=== PATIENT | male | born 1975 | race Caucasian/White ===

== ENCOUNTER 2017-04-21 20:21 | Emergency (ER) | payer BC ==
[2017-04-21 20:25] VITALS: BP 152/111; PULSE 94; TEMP 98.5; BMI 33.0
--- NOTE | 2017-04-21 21:08 | PDOC ---
History of Present Illness - History of Present Illness Initial Comments: 04/21/17 21:09 The patient is a 41 year old male, with no significant past medical history, who presents to the emergency department with a progressive rash on the right side of his back for 2 days. The patient states his rash looks like shingles. He reports the first bump on Saturday looked like a mosquito bite on his back, however, reports that bump is bigger today and there is development of new bumps extending around his waist on the right with a couple of smaller bumps to the right anterior ribs. He states a coworker had shingles on his head and took a few days off last week. He also states he had chickenpox as a child. He denies any other complaints. He denies chest pain, shortness of breath, headache and dizziness. He denies fever, chills, nausea, vomit, diarrhea and constipation. He denies dysuria, frequency, urgency and hematuria. Allergies: NKDA <Hoda Roberts - Last Filed: 04/21/17 21:09> <Jeremie Haley - Last Filed: 04/21/17 22:00> - General Chief Complaint: Rash Stated Complaint: ITCHY RASH Time Seen by Provider: 04/21/17 20:26 Past History <Hoda Roberts - Last Filed: 04/21/17 21:09> - Past Medical History Other medical history: DENIES - Psycho/Social/Smoking Cessation Hx Anxiety: No Suicidal Ideation: No Smoking History: Never smoked Hx Alcohol Use: No Drug/Substance Use Hx: No Substance Use Type: Alcohol <Jeremie Haley - Last Filed: 04/21/17 22:00> - Past Medical History Allergies/Adverse Reactions: Allergies Allergy/AdvReac Type Severity Reaction Status Date / Time No Known Allergies Allergy Verified 04/21/17 20:22 Home Medications: Ambulatory Orders Valacyclovir HCl [Valtrex] 1,000 mg PO TID #21 tablet 04/21/17 Review of Systems - Review of Systems Able to Perform ROS?: Yes Comments:: 04/21/17 21:09 CONSTITUTIONAL: Absent: fever, chills, diaphoresis, generalized weakness, malaise, loss of appetite HEENT: Absent: rhinorrhea, nasal congestion, throat pain, throat swelling, difficulty swallowing, mouth swelling, ear pain, eye pain, visual Changes CARDIOVASCULAR: Absent: chest pain, syncope, palpitations, irregular heart rate, lightheadedness , peripheral edema RESPIRATORY: Absent: cough, shortness of breath, dyspnea with exertion, orthopnea, wheezing, stridor, hemoptysis GASTROINTESTINAL: Absent: abdominal pain, abdominal distension, nausea, vomiting, diarrhea, constipation, melena, hematochezia GENITOURINARY: Absent: dysuria, frequency, urgency, hesitancy, hematuria, flank pain, genital pain MUSCULOSKELETAL: Absent: myalgia, arthralgia, joint swelling SKIN: (+) rash on back extending to anterior right ribs. Absent: itching, pallor HEMATOLOGIC/IMMUNOLOGIC: Absent: easy bleeding, easy bruising, lymphadenopathy, frequent infections ENDOCRINE: Absent: unexplained weight gain, unexplained weight loss, heat intolerance, cold intolerance NEUROLOGIC: Absent: headache, focal weakness or paresthesia, dizziness, unsteady gait, seizure, mental status changes, bladder or bowel incontinence PSYCHIATRIC: Absent: anxiety, depression, suicidal or homicidal ideation, hallucinations <Hoda Roberts - Last Filed: 04/21/17 21:09> *Physical Exam - Vital Signs Last Vital Signs Temp Pulse Resp BP Pulse Ox 98.5 F 94 H 18 152/111 100 04/21/17 20:22 04/21/17 20:22 04/21/17 20:22 04/21/17 20:22 04/21/17 20:22 - Physical Exam Comments: 04/21/17 21:10 GENERAL: Afebrile. Well developed, well nourished. Awake and alert. No acute distress. HEENT: Normocephalic, atraumatic. PERRLA, EOMI. No conjunctival pallor. Sclera are non- icteric. Moist mucous membranes. Oropharynx is clear. NECK: Supple. Full ROM. No JVD. Carotid pulses 2+ and symmetric, without bruits. No thyromegaly. No lymphadenopathy. CARDIOVASCULAR: Regular rate and rhythm. No murmurs, rubs, or gallops. Distal pulses are 2+ and symmetric. PULMONARY: No evidence of respiratory distress. Lungs clear to auscultation bilaterally. No wheezing, rales or rhonchi. ABDOMINAL: Soft. Non-tender. Non-distended. No rebound or guarding. No organomegaly. Normoactive bowel sounds. MUSCULOSKELETAL Normal range of motion at all joints. No bony deformities or tenderness. No CVA tenderness. EXTREMITIES: No cyanosis. No clubbing. No edema. No calf tenderness. SKIN: (+) grouped vesicles on an erythematous base in a dermatomal distribution on the right chest. No crusting as yet. No sign of superinfection. No lymphadenopathy. Warm and dry. Normal capillary refill. No jaundice. NEUROLOGICAL: Alert, awake, appropriate. Cranial nerves 2-12 intact. No motor deficits in the upper extremities and lower extremities. Normoreflexic in the upper and lower extremities. Normal speech. Gait is normal without ataxia. PSYCHIATRIC: Cooperative. Good eye contact. Appropriate mood and affect. <Hoda Roberts - Last Filed: 04/21/17 21:09> - Vital Signs Last Vital Signs Temp Pulse Resp BP Pulse Ox 98.5 F 94 H 18 152/111 100 04/21/17 20:22 04/21/17 20:22 04/21/17 20:22 04/21/17 20:22 04/21/17 20:22 <Jeremie Haley - Last Filed: 04/21/17 22:00> Medical Decision Making - Medical Decision Making 04/21/17 21:59 Rash consistent with herpes zoster of the left chest. No constitutional symptoms or signs. No suggestion of underlying illness or malignancy. Valtrex prescribed and patient is advised to follow-up with primary physician. No significant pain or discomfort other than mild itching. Wound care instructions were given. <Jeremie Haley - Last Filed: 04/21/17 22:00> *DC/Admit/Observation/Transfer - Attestations Scribe Attestion: 04/21/17 21:13 Documentation prepared by Hoda Roberts, acting as certified medical transcriptionist for Jeremie Ramesh MD <Hoda Roberts - Last Filed: 04/21/17 21:09> - Discharge Dispostion Admit: No <Jeremie Haley - Last Filed: 04/21/17 22:00> Diagnosis at time of Disposition: Zoster Qualifiers: Herpes zoster complications: without complications Qualified Code(s): B02.9 - Zoster without complications - Discharge Dispostion Disposition: HOME Condition at time of disposition: Stable - Prescriptions Prescriptions: Valacyclovir HCl [Valtrex] 1,000 mg PO TID #21 tablet - Patient Instructions Printed Discharge Instructions: DI for Shingles Additional Instructions: Wound care as discussed. Dress with antibiotic ointment and keep covered. Recheck immediately if sign of worsening infection. See your primary physician to monitor healing progress in 3-5 days. Take the medication as directed. - Post Discharge Activity Work/School Note: Back to Work
== END 2017-04-21 21:14 | disposition home or self-care (01) ==
LOC: FER 20:21
DX: B02.9 Zoster without complications (principal)
CPT/HCPCS: 99281-25